=== PATIENT | male | born 1995 | race Caucasian/White ===

== ENCOUNTER 2020-01-02 15:48 | Emergency (ER) | payer OTHER ==
[~2020-01-02] VITALS: Ht 177.8 cm; Wt 95.0 kg
--- NOTE | 2020-01-02 15:50 | NUR ---
TASK RN: RAJESH HARPER FROM HOME FOR FEELINGS OF DEPRESSION. PT REPORTS HX OF SAME, OFF MEDS (PROZAC) X SEVERAL YEARS. PT STATES HE "GOT OUT OF [employer] YESTERDAY. I'M 24 YEARS OLD AND I HAVE NOTHING GOING FOR ME IN MY LIFE". REPORTEDLY SEEKING HELP/RESOURCES DENIES SI/HI AT THIS TIME. HX OF SI, NO SA. REPORTS SUPPORTIVE FAMILY THAT LIVES IN [place] AND SUPPORTIVE ROOMMATE IN [place]. PT IS CALM AND COOPERATIVE, GENUINE AND POLITE TO STAFF. REPORT TO PRIMARY RN, YARIEL.
[2020-01-02 15:56] VITALS: BP 135/90
== END 2020-01-02 16:55 | disposition home or self-care (01) ==
LOC: ED 16:20
DX: F32.9 Major depressive disorder, single episode, unspecified (principal)
CPT/HCPCS: 99283